=== PATIENT | female | born 1975 | race Caucasian/White ===

== ENCOUNTER 2017-05-06 13:26 | Outpatient (CLI) | payer BC, MEDICARE | END 2017-05-06 13:27 | disposition home or self-care (01) | LOC: CTENTCT 13:26 | PROVIDERS: ATTEND Specialist | DX: J32.9 Chronic sinusitis, unspecified (principal) | CPT/HCPCS: 70486 ==

== ENCOUNTER 2017-05-12 10:07 | Day surgery (SDC) | payer BC, MEDICARE ==
[2017-05-11 14:45] VITALS: BMI 35.4
[2017-05-12] MEDS ORDERED: Oxymetazoline HCl 0.05% ( 15 ML ) ONE ×2 (11:22→13:42)
[2017-05-12] MEDS ORDERED: Fentanyl 100 MCG/2 ML VIAL ONE ×3 (12:07→15:17)
[2017-05-12] MEDS ORDERED: Midazolam HCl 2 mg/2 ml Vial ONE (12:07)
[2017-05-12] MEDS ORDERED: Lidocaine 2% w/Epinephrine 1:200K 20 ML VIAL ONE (13:42)
[2017-05-12] MEDS ORDERED: Propofol 200 MG/20 ML VIAL ONE (14:07)
[2017-05-12] MEDS ORDERED: Ondansetron HCl/PF 4 MG/2 ML Vial ONE (14:07)
[2017-05-12] MEDS ORDERED: Lidocaine 1% PF 5 ML VIAL ONE (14:07)
[2017-05-12] MEDS ORDERED: PHENYLEPHRINE-NS 100 MCG/ML 10 ML SYRINGE ONE (14:07)
[2017-05-12] MEDS ORDERED: Dexamethasone 20 MG/5 ML VIAL ONE (14:07)
[2017-05-12] MEDS ORDERED: Triamcinolone 40 MG/ML VIAL ONE (14:35)
--- NOTE | 2017-05-12 19:40 | OP ---
DATE OF SERVICE: 05/12/2017 PREOPERATIVE DIAGNOSES: Gena has chronic sinusitis, recurrent sinusitis, allergic fungal sinusitis an d nasal polyps. POSTOPERATIVE DIAGNOSES: Gena has chronic sinusitis, recurrent sinusitis, allergic fungal sinusitis a nd nasal polyps. PROCEDURE PERFORMED: 1. Bilateral nasal endoscopy with maxillary antrostomy with removal of tissue. 2. Bilateral nasal endoscopy with total ethmoidectomy. 3. Bilateral nasal endoscopy with frontal sinusotomy. 4. Bilateral nasal endoscopy with sphenoidotomy. FINDINGS: Patient had extensive polyps and allergic fungal mucin throughout. Stereotactic imaging was used to facilitate the dissection. PROCEDURE IN DETAIL: After consent was obtained, the patient was identified, brought to the operati ng room, and placed on the operating room table in the supine position. Consent was obtained, notif edgar the patient of the possibility of additional infections, bleeding, brain injury, and eye/orbita l injury. The patient was placed on the operating room table, and general endotracheal anesthesia and intravenous access was obtained. The patient was then positioned, prepped and draped for endosc opic sinus surgery. Nasal preparation included trimming nasal vestibular hairs and spraying in topi shahzad Afrin. We then placed Afrin topical solution on nasal pledgets and strategically located them i ntranasally. The perinasal mucosa was injected with 1% lidocaine with 1:100,000 epinephrine in the submucoperichondrial plane of the septum, lateral nasal wall, and anterior to the uncinate. The pat ient was then prepped and draped in a sterile fashion and positioned for endoscopic sinus surgery. Maxillary antrostomy: The uncinate was then identified and the extent of the uncinate was appreciat ed by out-fracturing the uncinate with the ball-tip probe. We then used the sickle blade to disarti culate the uncinate from the lateral nasal wall. This was then removed with straight biting and upb iting punches with the remaining shrouds of mucosa and bony septum removed with the micro-debrider. The natural os of the maxillary sinus was then identified and enlarged with the maxillary punches a nd back biting forceps. Total ethmoidectomy: The anterior face of the ethmoid bulla was entered and with the micro-debrider , dissection continued posteriorly to the ground lamella. The limits of dissection included the ins ertion of the middle turbinate, medial orbital wall, and base of skull. We similarly identified the frontal recess and removed shrouds of bone and debris in that region to obtain patency into the agg er nasi region and frontal recess. We then entered the ground lamella and its anteroinferior aspect and proceeded posteriorly, opening the posterior ethmoid air-cell system. Again, the limits of dis section included the base of skull and medial orbital wall. Frontal sinusotomy: The anterior face of the ethmoid bulla was entered and with the micro-debrider, dissection continued posteriorly to the ground lamella. The limits of dissection included the inse rtion of the middle turbinate, medial orbital wall, and base of skull. We similarly identified the frontal recess and removed shrouds of bone and debris in that region to obtain patency into the Agge r Nasi region and frontal recess. We then entered the ground lamella and its anteroinferior aspect and proceeded posteriorly, opening the posterior ethmoid air-cell system. Again, the limits of diss ection included the base of skull and medial orbital wall. Sphenoidotomy: The anterior face of the sphenoid was identified and entered in its extreme anteroin ferior aspect. A sphenoid punch was then used to enlarge the sphenoidotomy and no injury to the opt ic nerve or internal carotid artery occurred. At this point, we then turned our attention to the contralateral side and proceeded with endoscopic sinus surgery. At the completion of the case, Rice keel splints were placed in the ethmoid cavities after the ethmo idectomy. There were no complications. The patient tolerated the procedure well and was discharged to the recovery room in stable condition prior to return to the preoperative Day Stay with ultimate discharge home. Prescriptions for pain medication and antibiotics were provided. The patient rece ived intramuscular Depo-Medrol during the case.
== END 2017-05-12 16:20 | disposition home or self-care (01) ==
LOC: SDC 10:07
PROVIDERS: ATTEND Specialist
PROC: 09BT8ZZ Excision of Left Frontal Sinus, Via Natural or Artificial Opening Endoscopic (ICD-10-PCS; principal; 2017-05-12)
PROC: 09CW8ZZ Extirpation of Matter from Right Sphenoid Sinus, Via Natural or Artificial Opening Endoscopic (ICD-10-PCS; principal; 2017-05-12)
PROC: 099R8ZZ Drainage of Left Maxillary Sinus, Via Natural or Artificial Opening Endoscopic (ICD-10-PCS; principal; 2017-05-12)
PROC: 09TV8ZZ Resection of Left Ethmoid Sinus, Via Natural or Artificial Opening Endoscopic (ICD-10-PCS; principal; 2017-05-12)
PROC: 099Q8ZZ Drainage of Right Maxillary Sinus, Via Natural or Artificial Opening Endoscopic (ICD-10-PCS; principal; 2017-05-12)
PROC: 09TU8ZZ Resection of Right Ethmoid Sinus, Via Natural or Artificial Opening Endoscopic (ICD-10-PCS; principal; 2017-05-12)
PROC: 09BS8ZZ Excision of Right Frontal Sinus, Via Natural or Artificial Opening Endoscopic (ICD-10-PCS; principal; 2017-05-12)
PROC: 09CX8ZZ Extirpation of Matter from Left Sphenoid Sinus, Via Natural or Artificial Opening Endoscopic (ICD-10-PCS; principal; 2017-05-12)
DX: J32.9 Chronic sinusitis, unspecified (principal); J33.9 Nasal polyp, unspecified; F41.9 Anxiety disorder, unspecified; J45.909 Unspecified asthma, uncomplicated; M81.0 Age-related osteoporosis without current pathological fracture; E78.00 Pure hypercholesterolemia, unspecified; F90.9 Attention-deficit hyperactivity disorder, unspecified type; E11.9 Type 2 diabetes mellitus without complications; Z79.891 Long term (current) use of opiate analgesic; Z79.899 Other long term (current) drug therapy; Z88.0 Allergy status to penicillin; Z98.51 Tubal ligation status; Z96.641 Presence of right artificial hip joint; Z90.710 Acquired absence of both cervix and uterus; Z98.890 Other specified postprocedural states; Z86.73 Personal history of transient ischemic attack (TIA), and cerebral infarction without residual deficits; Z87.81 Personal history of (healed) traumatic fracture
CPT/HCPCS: 85014; 85018; 85049; 96374; J0131; J1100; J2001; J2250; J2405; J2704; J3010; J3301

== ENCOUNTER 2017-05-20 12:07 | Outpatient (CLI) | payer BC, MEDICARE | END 2017-05-20 12:08 | disposition home or self-care (01) | LOC: LABBT 12:07 | PROVIDERS: ATTEND Specialist | DX: Z01.812 Encounter for preprocedural laboratory examination (principal) ==

== ENCOUNTER 2017-05-20 13:00 | Inpatient (IN) | payer BC, MEDICARE ==
[2017-05-26] MEDS ORDERED: Heparin 5,000 UNITS/ML VIAL ONE (08:40)
[2017-05-26] MEDS ORDERED: Ketorolac Tromethamine 30 MG/ML VIAL ONE (08:40)
[2017-05-26] MEDS ORDERED: Scopolamine 1.5 mg/72 hour Patch ONE (08:41)
[2017-05-26] MEDS ORDERED: cefOXitin 2 GM, Syringe 1 ML in Sterile Water 10 ML SLOW IVP SCH (08:45)
[2017-05-26] MEDS ORDERED: cefOXitin 2 GM in Sodium Chloride 0.9% 100 ML IVPB SCH (09:00)
[2017-05-26] MEDS ORDERED: Fentanyl 100 MCG/2 ML VIAL ONE (09:43)
[2017-05-26] MEDS ORDERED: Midazolam HCl 2 mg/2 ml Vial ONE (09:46)
[2017-05-26] MEDS ORDERED: Lidocaine 2% w/Epinephrine 1:200K 20 ML VIAL ONE (09:47)
[2017-05-26] MEDS ORDERED: Bupivacaine PF 0.5% 30 ML VIAL ONE (09:47)
[2017-05-26] MEDS ORDERED: Glycopyrrolate 0.2 MG/ML 5 ML SYRINGE ONE (10:18)
[2017-05-26] MEDS ORDERED: Succinylcholine Chloride 20 MG/ML 10 ml SYRINGE FS ONE (10:18)
[2017-05-26] MEDS ORDERED: Propofol 200 MG/20 ML VIAL ONE (10:18)
[2017-05-26] MEDS ORDERED: Lidocaine 2% MPF 10 ML AMP (For Epidural Use) ONE (10:18)
[2017-05-26] MEDS ORDERED: Metoclopramide HCl 10 MG/2 ML VIAL ONE (10:18)
[2017-05-26] MEDS ORDERED: Ondansetron HCl/PF 4 MG/2 ML Vial ONE (10:18)
[2017-05-26] MEDS ORDERED: diphenhydrAMINE 50 MG/ML VIAL ONE (10:18)
[2017-05-26] MEDS ORDERED: Ipratropium Oral Inhaler (200 INHALATIONS) INH PRN (10:27)
[2017-05-26] MEDS ORDERED: D5 1/2 NS w/20 mEq KCL 1,000 ML ONE (12:43)
[2017-05-26] MEDS ORDERED: HYDROmorphone 2 MG/ML VIAL SLOW IVP PRN (12:55)
[2017-05-26] MEDS ORDERED: Morphine Sulfate 2 MG/ML SYRINGE SLOW IVP PRN (12:55)
[2017-05-26] MEDS ORDERED: Ondansetron HCl/PF 4 MG/2 ML Vial IVP PRN (12:55)
[2017-05-26] MEDS ORDERED: Promethazine HCl 25 MG/ML VIAL IM/IV PRN (12:55)
[2017-05-26] MEDS ORDERED: Non-Formulary Medication 1 EACH PO PRN (12:55)
[2017-05-26] MEDS ORDERED: Morphine 4 MG/ML Carpuject SLOW IVP PRN ×2 (12:55→13:50)
[2017-05-26] MEDS ORDERED: Dextrose 50% Abboject 50 ML SYRINGE SLOW IVP PRN (13:50)
[2017-05-26] MEDS ORDERED: hydrALAZINE 20 MG/ML VIAL SLOW IVP PRN (13:50)
[2017-05-26] MEDS ORDERED: Promethazine HCl 25 MG/ML VIAL IM PRN (13:50)
[2017-05-26] MEDS ORDERED: Dextrose 5% in Water 1,000 ML IV PRN (13:50)
[2017-05-26] MEDS ORDERED: HumaLOG 300 UNITS/3 ML VIAL SC PRN (13:50)
[2017-05-26] MEDS ORDERED: Hydrocodone-Acetamin 15 ML UDCUP PO PRN (13:50)
[2017-05-26] MEDS ORDERED: diphenhydrAMINE 50 MG/ML VIAL IVP PRN (13:50)
[2017-05-26] MEDS ORDERED: Morphine 10 MG/ML VIAL SLOW IVP PRN (15:10)
[2017-05-26] MEDS: Morphine 10 MG/ML VIAL SLOW IVP PRN ×4 (15:12→23:08)
--- NOTE | 2017-05-26 15:16 | OP ---
DATE OF PROCEDURE: 05/26/2017. PREOPERATIVE DIAGNOSIS: Severe obesity with comorbidities. POSTOPERATIVE DIAGNOSIS: Severe obesity with comorbidities. PROCEDURE PERFORMED: Laparoscopic sleeve gastrectomy, esophagogastroduodenoscopy. SURGEON: Joseph Solorzano M.D. ANESTHESIA: General endotracheal. INDICATIONS: The patient is a 41-year-old obese white female. She has undergone preoperative evalu ation and education. She presents at this time for laparoscopic sleeve gastrectomy. DESCRIPTION OF PROCEDURE: Informed consent was obtained. The patient was taken to the operating ro om where general endotracheal anesthesia was obtained with the patient in the supine position. The abdomen was prepped with ChloraPrep and draped in sterile fashion. Local anesthetic was infiltrated and a 5 mm supraumbilical incision was created through which a Veress needle was passed into the pe ritoneal cavity and pneumoperitoneum established using carbon dioxide up to a pressure of 15 mmHg. A 5 mm trocar port was passed through this same incision. Laparoscopic camera was passed through th is port. Under direct vision, 4 additional ports were placed including bilateral subcostal 5 mm por ts, a paramedian right 12 mm port and a left paramedian 15 mm port. The patient was placed in reverse Trendelenburg position. A 5 mm epigastric incision was created th rough which Nathansen retractor was passed into the abdominal cavity and used to retract the left lo be of the liver. Unfortunately, she had significant fatty infiltration of her liver. This made retraction of the mario er difficult and made visualization of a good part of the stomach challenging as well. With her tra ctor optimally positioned, I was able to proceed in a safe fashion, although it was certainly more c hallenging. The pylorus was identified and beginning about 4 cm proximal to the pylorus, I dissected the greater curvature of all omental and vascular tissue using the LigaSure device. This dissection was lazarus d proximally up to the angle of His and eventually clearing the left pepe of the diaphragm. Unfortunately, the dissection plane between the stomach and the spleen at the fundus was very diffic ult as the stomach appeared to be intimately adherent to the spleen for reasons that were not certai n. I had to dissect this was carefully and slowly from a couple of different angles before fully mo bilizing this. Once it was mobilized, however, I was able to reflect the entire stomach to the abdi ent's right. Posterior adhesions were taken down as well. A size 36 bougie was passed down to the level of the pylorus and used as a guide for subsequent sania rectomy. The sleeve gastrectomy was performed using a series of fires of the [place] stapler along the lesser curvature. The initial fire was a green load followed by a yellow load followed by a ser ies of blue loads. The dissection was carried up to the angle of His, taking care to avoid narrowin g the incisura or the gastroesophageal junction. When the stomach was transected, the excised porti on was removed through the 15 mm port site and the fascia was closed with 0 Vicryl suture using a Gr aNee needle in a [id number] fashion. From above, esophagogastroduodenoscopy was performed passing the scope through the stomach down to t he pylorus. While it was noted to be snugged at the incisura, there was no evidence of stricture fo rmation and the lumen was patent. The scope passed through easily. There was no intraluminal bleed ing. The gas was aspirated and the scope was withdrawn uneventfully. From within the abdomen, the irrigant that had been placed on the staple line was aspirated. There had been no evidence of air leak from the staple line. There were a couple of areas of oozing and t hese were treated with a Hemoclip placement. All fluid was aspirated. All ports and instruments were removed under direct vision. The fascial defect at the right upper q uadrant 12 mm port site was closed with 0 Vicryl suture using a GraNee needle. Pneumoperitoneum was carefully evacuated. A 0.25% Marcaine with epinephrine was infiltrated in each port site. Skin ed ges were approximated with 4-0 Monocryl subcuticular suture. Dermabond was placed externally. Ther e were no complications. The patient tolerated the procedure well and was taken to recovery room in stable condition.
[2017-05-26] MEDS: Ketorolac Tromethamine 30 MG/ML VIAL IVP SCH ×2 (16:04→20:05)
[2017-05-26] MEDS: 1/2 NS w/KCL 20 mEq 1,000 ML IV SCH ×2 (16:05→20:39)
[2017-05-26] MEDS: Ondansetron HCl/PF 4 MG/2 ML Vial IVP PRN (16:12)
[2017-05-26 19:58] VITALS: BMI 35.4
[2017-05-26] MEDS ORDERED: Promethazine HCl 25 MG/ML VIAL IM SCH (20:30)
[2017-05-26] MEDS ORDERED: Meperidine HCl/PF 25 MG/ML VIAL IM SCH (20:30)
[2017-05-26] MEDS ORDERED: Enoxaparin Sodium 40 MG/0.4 ML SYRINGE SC SCH (21:00)
[2017-05-27] MEDS: Morphine 10 MG/ML VIAL SLOW IVP PRN ×4 (01:04→07:45)
[2017-05-27] MEDS: Ketorolac Tromethamine 30 MG/ML VIAL IVP SCH ×2 (03:19→10:00)
[2017-05-27 04:18] LABS: #Basophils 0.1 thou/uL (0.0-0.2); #Eosinphils 0.2 thou/uL (0.0-0.7); #Lymphocytes 2.8 thou/uL (1.20-3.40); #Monocytes 1.1 thou/uL (0.11-0.59); #Neutrophils 10.6 thou/uL (1.40-6.50); %Basophils 0.4 % (0.0-1.0); %Eosinophils 1.4 % (0.0-10.0); %Lymphocytes 18.9 % (21.0-51.0); %Monocytes 7.5 % (0.0-10.0); Hematocrit 37.5 % (36.0-47.0); Mean Platelet Volume 7.4 fL (7.4-10.4); Red Blood Cell (RBC) Count 4.11 mill/uL (4.20-5.40); White Blood Cell (WBC) Count 14.7 thou/uL (4.8-10.8)
[2017-05-27 04:42] LABS: Anion Gap 14 mmol/L (10-20); BUN (Urea Nitrogen) 8 mg/dL (7.0-18.7); Calc. Creatinine Clearance 166 mL/min (70-130); Calcium 8.4 mg/dL (7.8-10.44); Carbon Dioxide 21 mmol/L (22-29); Chloride 106 mmol/L (98-107); Estimated GFR-MDRD Greater than 90
[2017-05-27] MEDS: 1/2 NS w/KCL 20 mEq 1,000 ML IV SCH (05:46)
[2017-05-27] MEDS ORDERED: Pantoprazole 40 MG VIAL IVP SCH (09:00)
[2017-05-27] MEDS ORDERED: Bupropion 150 MG XL TAB PO SCH (09:00)
--- NOTE | 2017-05-27 10:34 | RAD ---
LIMITED UPPER GI: 05/27/2017 HISTORY: The patient is post gastric sleeve procedure. This is for evaluation of a leak, post procedure. FLUOROSCOPY: Total fluoroscopy time is 1.7 minutes with a total dose of 51.324 Gycm2. FINDINGS: Approximately 15 mL of Gastrografin was administered orally. Contrast traverses the region of the G E junction, but there is holdup with a suggested area of narrowing present within the most proximal aspect of the stomach, with only slow transit of contrast through this region. Contrast slowly exte nds through this region after 15 minutes and is also seen in the small bowel but, after 15 minutes, there is residual contrast within the distal esophagus. Multiple surgical clips overly the epigastric region, related to recent post surgical change. IMPRESSION: Post surgical changes related to recent gastric sleeve procedure. There is slow transit of contrast through an area of narrowing seen just distal to the level of the gastroesophageal junction within the stomach; however, at 15 minutes of imaging, additional contrast does traverse this region and ev entually extends into the small bowel. The above findings were discussed with Dr. Solorzano at the termination of this exam. CODE CR POS: [facility]
[2017-05-27] MEDS: Ondansetron HCl/PF 4 MG/2 ML Vial IVP PRN (10:39)
[2017-05-27 13:45] VITALS: BP 109/72; TEMP 98.6
== END 2017-05-27 14:50 | disposition home or self-care (01) | DRG 621 ==
LOC: SURG A 05-26 08:11
PROVIDERS: ADMIT Specialist; ATTEND Specialist
PROC: 0DB64Z3 Excision of Stomach, Percutaneous Endoscopic Approach, Vertical (ICD-10-PCS; principal; 2017-05-26)
PROC: 0DJ08ZZ Inspection of Upper Intestinal Tract, Via Natural or Artificial Opening Endoscopic (ICD-10-PCS; 2017-05-26)
DX: E66.01 Morbid (severe) obesity due to excess calories (principal); K76.0 Fatty (change of) liver, not elsewhere classified; Z68.35 Body mass index [BMI] 35.0-35.9, adult; F41.9 Anxiety disorder, unspecified; J45.909 Unspecified asthma, uncomplicated; E55.9 Vitamin D deficiency, unspecified; F90.9 Attention-deficit hyperactivity disorder, unspecified type; Z86.73 Personal history of transient ischemic attack (TIA), and cerebral infarction without residual deficits; E11.9 Type 2 diabetes mellitus without complications; Z79.84 Long term (current) use of oral hypoglycemic drugs; M81.0 Age-related osteoporosis without current pathological fracture; Z88.0 Allergy status to penicillin
CPT/HCPCS: 36415; 36416; 74241; 80048; 85025; 88307; 88312; 94760; A4216; C9113; J0131; J0694; J1170; J1200; J1644; J1650; J1885; J2001; J2175; J2250; J2270; J2405; J2550; J2704; J2765; J3010; J7050; S0020

== ENCOUNTER 2017-06-10 11:15 | Outpatient (CLI) | payer MEDICARE, BC ==
--- NOTE | 2017-06-10 12:02 | ULT ---
ULTRASOUND WITH DOPPLER DUPLEX VENOUS LOWER EXTREMITY RIGHT CPT: 41405 ICD-10-PCS: B54D HISTORY: Edema and pain. TECHNIQUE: Color flow Doppler, spectral waveform analysis of pulsed Doppler, and carias-scale imaging with maryan christal and augmentation, were used to evaluate the bilateral common femoral, femoral, popliteal, territory sales manager medical ior tibial, and superficial femoral, veins; and the proximal portions of the profunda femoral and gre ater saphenous, veins. FINDINGS: Appropriate compressibility and flow within the imaged deep vein system right lower extremity. IMPRESSION: No deep vein thrombosis. POS: [facility]
== END 2017-06-10 11:16 | disposition home or self-care (01) ==
LOC: SCSULT 11:15
PROVIDERS: ATTEND Specialist
DX: M79.604 Pain in right leg (principal); Z98.84 Bariatric surgery status

== ENCOUNTER 2017-06-14 12:56 | Outpatient (CLI) | payer BC, MEDICARE ==
--- NOTE | 2017-06-14 16:07 | ULT ---
RIGHT UPPER QUADRANT ULTRASOUND 06/14/17 COMPARISON: None. HISTORY: Right upper quadrant pain, prior bariatric surgery. TECHNIQUE: Multiplanar carias scale sonographic imaging of the right upper quadrant obtained. FINDINGS: Imaged pancreatic parenchyma is grossly unremarkable. the distal body and tail are obscured by bowel gas. There is marked increased echogenicity of the hepatic parenchyma suggesting hepatocellular disease, s uch as steatosis. This limits assessment for focal liver lesion and biliary dilatation. No gallbladder wall thickening or pericholecystic fluid is seen. No gallstones are noted. Right kidney measures 11.5 cm in craniocaudal dimension and demonstrates no stone, hydronephrosis or mass. The common bile duct is enlarged for a patient of this age, measuring in the 8 mm range. The sonograp her reports a positive Mckinney's sign, significance uncertain. IMPRESSION: 1. Increased echogenicity of the hepatic parenchyma, suggesting hepatocellular disease, such as steatosis. 2. Positive Mckinney's sign of uncertain significance given lack of gallstones, pericholecystic fl uid, and gallbladder wall thickening. 3. Dilated common bile duct. This may represent a biliary obstructive process in the region of t he ampulla of Vater or pancreatic head. 4. Recommend correlation with LFTs and further assessment via CT or MRI of the abdomen/MRCP to e valuate for a nonvisualized biliary obstructive lesion. Code T POS: [facility]
== END 2017-06-14 12:57 | disposition home or self-care (01) ==
LOC: ULT 12:56
PROVIDERS: ATTEND Specialist
DX: R10.11 Right upper quadrant pain (principal); K83.8 Other specified diseases of biliary tract; K82.8 Other specified diseases of gallbladder
CPT/HCPCS: 36415; 76705; 80053; 81001; 82150; 85025

== ENCOUNTER 2017-06-15 10:17 | Day surgery (SDC) | payer BC, MEDICARE ==
[2017-06-15] MEDS ORDERED: Ketorolac Tromethamine 30 MG/ML VIAL ONE ×2 (12:18→18:34)
[2017-06-15] MEDS ORDERED: Midazolam HCl 2 mg/2 ml Vial ONE ×2 (12:29→12:59)
[2017-06-15] MEDS ORDERED: Fentanyl 100 MCG/2 ML VIAL ONE ×4 (12:43→18:31)
[2017-06-15] MEDS ORDERED: Albuterol Sulfate HFA (OR ONLY) ONE (12:54)
[2017-06-15] MEDS ORDERED: Levofloxacin 500 mg/D5W 100 ml Premix Bag ONE (13:12)
[2017-06-15] MEDS ORDERED: Fentanyl 250 MCG/5 ML VIAL ONE (15:53)
[2017-06-15] MEDS ORDERED: Bupivacaine/Epinephrine 0.25% 30 ML VIAL ONE (16:03)
[2017-06-15] MEDS ORDERED: Promethazine HCl 25 MG/ML VIAL ONE (18:25)
[2017-06-15] MEDS ORDERED: Dexamethasone 20 MG/5 ML VIAL ONE (18:34)
[2017-06-15] MEDS ORDERED: Lidocaine 1% PF 5 ML VIAL ONE (18:34)
[2017-06-15] MEDS ORDERED: Propofol 200 MG/20 ML VIAL ONE (18:34)
[2017-06-15] MEDS ORDERED: Glycopyrrolate 0.2 MG/ML 5 ML SYRINGE ONE (18:34)
[2017-06-15] MEDS ORDERED: Ondansetron HCl/PF 4 MG/2 ML Vial ONE (18:34)
[2017-06-15] MEDS ORDERED: HYDROcodone/Acetaminophen 5/325 mg Tablet ONE (19:16)
--- NOTE | 2017-06-16 16:23 | OP ---
DATE OF OPERATION: 06/15/2017 PREOPERATIVE DIAGNOSES: Severe right upper quadrant abdominal pain, distended gallbladder with leuko cytosis. POSTOPERATIVE DIAGNOSES: Severe right upper quadrant abdominal pain, distended gallbladder with leuk ocytosis. OPERATION PERFORMED: Laparoscopic cholecystectomy. SURGEON: Joseph Solorzano M.D. ANESTHESIA: General endotracheal. INDICATIONS: The patient is a 41-year-old white female. She began having fairly severe right upper abdominal pain following her sleeve gastrectomy. This pain she believes has been getting worse and s he was 2 weeks out from surgery. Gallbladder ultrasound was obtained, which revealed a somewhat dist ended gallbladder and potentially dilated common bile duct, but no other significant abnormalities. Laboratory studies revealed elevated white blood cell count. Her examination is consistent with chol ecystitis. She has no evidence of incisional problems or infection. I spoke with her regarding opti ons for treating this. I suspect that this is a gallbladder related problem, but I should not be cer tain. We discussed to obtain a CT scan or further studies to evaluate this and she opted instead to proceed with cholecystectomy at this time, which I feel is a reasonable approach. DESCRIPTION OF OPERATION: Informed consent was obtained. The patient was taken to the operating ro om where general endotracheal anesthesia was obtained with the patient in the supine position. The a bdomen was prepped with Betadine and draped in the usual sterile fashion. Quarter percent Marcaine w ith epinephrine was infiltrated below the umbilicus and a 10 mm infraumbilical incision was created. A Veress needle was passed through this incision into the peritoneal cavity. A pneumoperitoneum was established using carbon dioxide up to a pressure of 15 mmHg. Local anesthetic was infiltrated and three additional 5 mm right upper quadrant incisions were created. Through the mid incision, a 5 mm port was passed into the peritoneal cavity. The camera was passed through this port and under direct vision, an 11 port is passed through the infraumbilical incision. The camera was replaced through t his port, and under direct vision, two additional 5 mm ports were passed through the incisions alread y created. The gallbladder was grasped and retracted in a cephalad direction. Minimal adhesions were bluntly st ripped away from the apex of the gallbladder, and the apex was retracted laterally and inferiorly. C areful dissection was carried out to the apex of the gallbladder to identify the cystic duct and cyst ic artery. These were each carefully dissected circumferentially. The duct was of normal caliber. Both the duct and the artery were divided between clips leaving two on the side to remain within the abdomen. The gallbladder was then dissected out of the gallbladder fossa using electrocautery and re moved through the infraumbilical port site. The fascia was closed with 0 Vicryl suture and a GraNee needle. The right upper quadrant was inspected and irrigated. All irrigant was aspirated. All port s and instruments were removed under direct vision. Pneumoperitoneum was carefully evacuated. Addit ional local anesthetic was infiltrated into each port site. The skin edges were approximated with 4- 0 Monocryl subcuticular sutures, and Dermabond was placed externally. There were no complications. The patient tolerated the procedure well and was taken to the Recovery Room in stable condition. FINDINGS: The patient's gallbladder was distended, but without significant inflammatory change. The duct was small and noninflamed and I did not obtain a cholangiogram. There were some adhesions betw een the omentum and the falciform ligament as well as to portion of the underside of the liver. The examined portions of the gastrectomy were entirely unremarkable. There was no evidence of any other intra-abdominal inflammatory process. The umbilicus was inspected at the patient's request and there was a small umbilical hernia. I passed the infraumbilical port through this hernia repaired with a single 0 Vicryl suture at the time of closure. There were no complications and essentially no blood loss. The patient tolerated the procedure well and was taken to recovery room in stable condition.
== END 2017-06-15 19:35 | disposition home or self-care (01) ==
LOC: SDC 10:17 → EEVIPCON 10:17 → SDC 19:35
PROVIDERS: ATTEND Specialist
PROC: 0FT44ZZ Resection of Gallbladder, Percutaneous Endoscopic Approach (ICD-10-PCS; principal; 2017-06-15)
DX: K81.1 Chronic cholecystitis (principal); M81.0 Age-related osteoporosis without current pathological fracture; F32.9 Major depressive disorder, single episode, unspecified; Z88.0 Allergy status to penicillin; Z98.890 Other specified postprocedural states
CPT/HCPCS: 88304; 96374; J0131; J1100; J1885; J1956; J2001; J2250; J2405; J2550; J2704; J3010

== ENCOUNTER 2017-08-03 10:17 | Outpatient (CLI) | payer BC, MEDICARE ==
--- NOTE | 2017-08-03 13:48 | RAD ---
UPPER GI: Date: 08/03/17 COMPARISON: 05/27/17. HISTORY: 41-year-old female who underwent a gastric sleeve procedure in May 2017. The patient reports anastasia t since the surgery she has had persistent nausea with vomiting and inability to eat and drink normal ly. FINDINGS: [employer] Pipe Supervisor imaging demonstrates postoperative clips, as well as a suture line within the epigastric region , consistent with the provided history of prior gastric sleeve procedure. The patient initially ingested Gastrografin. The contrast media extends from the distal esophagus int o the postoperative stomach. The contrast transit across the postoperative stomach is slow, but some of the ingested Gastrografin does extend into the duodenum. Thus, the patient ingested a small amount of thin barium. A persistent area of relative narrowing is noted within the postoperative stomach at approximately the level of the 12th rib. The proximal postoperative stomach is dilated in this regio n. The contrast media very slowly traverses this area of persistent narrowing of the postoperative st omach with significant contrast media persisting at least 15 minutes following ingestion of the contr ast. IMPRESSION: No evidence for complete obstruction at the level of the postoperative stomach. However, there is a p ersistent area of focal narrowing of the postoperative stomach as detailed above, with persistent dil ation and persistence of contrast media proximally. This suggests underlying fixed narrowing/strictur e which would be better assessed via direct visualization with endoscopy. POS: [facility]
[2017-08-03] MEDS ORDERED: GASTROGRAFIN 30 ML BOT ONE (16:51)
== END 2017-08-03 10:18 | disposition home or self-care (01) ==
LOC: RAD 10:17
PROVIDERS: ATTEND Specialist
DX: Z48.815 Encounter for surgical aftercare following surgery on the digestive system (principal); Z98.84 Bariatric surgery status
CPT/HCPCS: 74241

== ENCOUNTER 2017-11-24 11:32 | Outpatient (CLI) | payer OTHER | END 2017-11-24 11:33 | disposition home or self-care (01) | LOC: BICRAD 11:32 | PROVIDERS: ATTEND Internal Medicine | DX: Z47.1 Aftercare following joint replacement surgery (principal); Z96.641 Presence of right artificial hip joint ==

== ENCOUNTER 2018-08-18 05:28 | Outpatient (CLI) | payer BC, MEDICARE ==
[2018-08-18 12:03] LABS: Hemoglobin 12.6 g/dL (12.0-16.0); Mean Corpuscular Hemoglobin 29.5 pg (27.0-31.0); Mean Corpuscular Volume 92.2 fL (78.0-98.0); Mean Platelet Volume 8.4 fL (7.4-10.4); Platelet Count 297 thou/uL (130-400); RBC Distribution Width 11.2 % (11.5-14.5); Red Blood Cell (RBC) Count 4.27 mill/uL (4.20-5.40); White Blood Cell (WBC) Count 6.8 thou/uL (4.8-10.8)
[2018-08-18 12:26] LABS: Anion Gap 11 mmol/L (10-20); BUN (Urea Nitrogen) 10 mg/dL (7.0-18.7); Calc. Creatinine Clearance 0 mL/min (70-130); Calcium 9.6 mg/dL (7.8-10.44); Carbon Dioxide 28 mmol/L (22-29); Chloride 108 mmol/L (98-107); Estimated GFR-MDRD 90; Glucose 86 mg/dL (70-105); Potassium 4.7 mmol/L (3.5-5.1); Sodium 142 mmol/L (136-145)
== END 2018-08-18 05:29 | disposition home or self-care (01) ==
LOC: LABBT 05:28
PROVIDERS: ATTEND Neurological Surgery
DX: Z01.818 Encounter for other preprocedural examination (principal); M54.12 Radiculopathy, cervical region
CPT/HCPCS: 80048; 85027; 93005; 93010

== ENCOUNTER 2018-08-21 07:47 | Day surgery (SDC) | payer BC, MEDICARE ==
[2018-08-18 11:26] VITALS: BMI 23.0
[2018-08-21] MEDS ORDERED: Clindamycin/D5W 900 mg/50 ml Premix Bag ONE (08:06)
[2018-08-21] MEDS ORDERED: Levofloxacin 500 mg/D5W 100 ml Premix Bag ONE (08:06)
[2018-08-21] MEDS ORDERED: Midazolam HCl 2 mg/2 ml Vial ONE (10:13)
[2018-08-21] MEDS ORDERED: Sodium Chloride 0.9% 10 ML ONE (11:28)
[2018-08-21] MEDS ORDERED: HYDROmorphone 2 MG/ML VIAL ONE ×2 (12:07→14:09)
[2018-08-21] MEDS ORDERED: Fentanyl 100 MCG/2 ML VIAL ONE (12:27)
[2018-08-21] MEDS ORDERED: Morphine 4 MG/ML VIAL ONE (13:45)
[2018-08-21] MEDS ORDERED: PROPOFOL 200 MG/20 ML VIAL ONE (14:11)
[2018-08-21] MEDS ORDERED: Lidocaine 1% PF 5 ML VIAL ONE (14:11)
[2018-08-21] MEDS ORDERED: Rocuronium Bromide 10 MG/ML (10ML VIAL) ONE (14:11)
[2018-08-21] MEDS ORDERED: Ondansetron PF 4 MG/2 ML Vial ONE (14:11)
[2018-08-21] MEDS ORDERED: Ketorolac Tromethamine 30 MG/ML VIAL ONE (14:11)
[2018-08-21] MEDS ORDERED: Dexamethasone 20 MG/5 ML VIAL ONE (14:11)
[2018-08-21] MEDS ORDERED: Glycopyrrolate 0.2 MG/ML 5 ML SYRINGE ONE (14:11)
--- NOTE | 2018-08-21 14:21 | OP ---
DATE OF PROCEDURE: 08/21/2018 WOUND/OSTOMY NURSE: Esau Garzon PA-C PROCEDURES PERFORMED: Anterior cervical diskectomy C5-C6 and C6-C7, interbody arthrodesis, intervertebral biomechanical device, local morselized autograft, demineralized bone matrix, anterior titanium instrumentation C5-C6 and C6-C7. DESCRIPTION OF PROCEDURE: The patient was brought to the operating room and intubated. She was positioned supine with the head in modest extension on a gel-filled donut. An incision was made in the right precervical region and dissected medial to the sternocleidomastoid muscle, identified the anterior cervical spinal, and the level was confirmed by x-ray. We placed distraction between C5 and C7 and completely decompressed the intervertebral disks. The bony endplates were then decorticated for the purpose of arthrodesis and appropriate-sized intervertebral biomechanical PEEK device was brought into the field and filled with demineralized bone matrix and local morselized autograft, and tapped in place securely at C5-C6 and C6-C7. Next, an anterior plate was brought into the field and secured to C5, C6, and C7 using two 14-mm screws at each level. The wound was then extensively irrigated and maximum hemostasis was secured and the wound was closed in anatomic layers. Job ID: [id number]
[2018-08-21] MEDS ORDERED: tiZANidine HCl 4 MG TAB ONE (14:37)
[2018-08-21] MEDS ORDERED: HYDROcodone/Acetaminophen 5/325 mg Tablet ONE (15:24)
== END 2018-08-21 16:53 | disposition home or self-care (01) ==
LOC: SDC 07:47
PROVIDERS: ATTEND Neurological Surgery
PROC: 0RG10A0 Fusion of Cervical Vertebral Joint with Interbody Fusion Device, Anterior Approach, Anterior Column, Open Approach (ICD-10-PCS; principal; 2018-08-21)
DX: M50.322 Other cervical disc degeneration at C5-C6 level (principal); F41.9 Anxiety disorder, unspecified; M81.0 Age-related osteoporosis without current pathological fracture; J45.909 Unspecified asthma, uncomplicated; E11.9 Type 2 diabetes mellitus without complications; E78.00 Pure hypercholesterolemia, unspecified; F90.9 Attention-deficit hyperactivity disorder, unspecified type; Z86.73 Personal history of transient ischemic attack (TIA), and cerebral infarction without residual deficits; Z98.51 Tubal ligation status; Z90.710 Acquired absence of both cervix and uterus; Z98.84 Bariatric surgery status; Z88.5 Allergy status to narcotic agent; Z88.0 Allergy status to penicillin; Z79.891 Long term (current) use of opiate analgesic; Z98.890 Other specified postprocedural states
CPT/HCPCS: 76000; C1713; C1776; J1100; J1170; J1885; J1956; J2001; J2250; J2270; J2405; J2704; J3010; J3370; J3490

== ENCOUNTER 2018-09-07 14:45 | Outpatient (CLI) | payer BC, MEDICARE ==
--- NOTE | 2018-09-07 19:20 | RAD ---
CERVICAL SPINE SERIES THREE VIEWS: INDICATIONS: History of prior neck surgery with right upper extremity radiculopathy. FINDINGS: ACDF spans C5 through C7. No hardware complication is present. Anterior vertebral disk space prosth eses are present at C5-C6 and C6-C7. Spine alignment is maintained. The lateral masses of C1 are ap propriate aligned. The dens, where visualized, is intact. IMPRESSION: Postoperative cervical spine without acute hardware complication identified. POS: [facility]
== END 2018-09-07 14:46 | disposition home or self-care (01) ==
LOC: TBSIIMAG 14:45
PROVIDERS: ATTEND Neurological Surgery
DX: M54.12 Radiculopathy, cervical region (principal); Z98.890 Other specified postprocedural states
CPT/HCPCS: 72040

== ENCOUNTER 2018-10-30 13:47 | Outpatient (CLI) | payer MEDICARE, BC ==
--- NOTE | 2018-10-30 14:31 | CT ---
CT CERVICAL SPINE NONCONTRAST: HISTORY: Neck pain. Left arm numbness. Recent surgery. FINDINGS: Vertebral body height and alignment are maintained. Anterior fixation hardware is in place at the C5- 6-7 levels without perihardware lucency. C2-3: Minimal degenerative spondylolisthesis. Central canal and neural foramina are patent. C3-4, C4-5: Central canal and neural foramina are patent. C5-6: Mild to moderate central canal stenosis. Significant right foraminal stenosis remains. C5-C6: Significant central canal and bilateral foraminal stenoses. C7-T1: Central canal and neural foramina are patent. No traumatic disc herniation is apparent. No hyperdense fluid collections. IMPRESSION: Postoperative and degenerative changes cervical spine as detailed above. No hardware complication or acute abnormalities are demonstrated. Transcribed Date/Time: 10/30/2018 2:34 PM
== END 2018-10-30 13:48 | disposition home or self-care (01) ==
LOC: BICCT 13:47
PROVIDERS: ATTEND Neurological Surgery
DX: M50.30 Other cervical disc degeneration, unspecified cervical region (principal); M47.812 Spondylosis without myelopathy or radiculopathy, cervical region; Z98.890 Other specified postprocedural states
CPT/HCPCS: 72125

== ENCOUNTER 2018-11-02 12:41 | Outpatient (CLI) | payer BC, MEDICARE ==
--- NOTE | 2018-11-02 13:02 | RAD ---
XR Cerv Sp Ap Lat STANDARD History: [M 50.30 DDD] Comparison: Radiograph August 2018 Findings: Open-mouth odontoid view is normal. Similar appearance of ACDF hardware and C5-C7. No hardw are complication. No migration of the discectomy changes. Low-grade narrowing of the C4/C5 disc space with small circumferential osteophyte. Impression: Unchanged postoperative appearance.
== END 2018-11-02 12:42 | disposition home or self-care (01) ==
LOC: TBSIIMAG 12:41
PROVIDERS: ATTEND Neurological Surgery
DX: M50.30 Other cervical disc degeneration, unspecified cervical region (principal); Z98.890 Other specified postprocedural states
CPT/HCPCS: 72040

== ENCOUNTER 2018-12-26 11:19 | Outpatient (CLI) | payer BC, MEDICARE ==
--- NOTE | 2018-12-26 11:51 | RAD ---
THREE VIEWS CERVICAL SPINE: Comparison: 11-02-18 History: Cervical fusion. Neck pain. Radiculopathy. FINDINGS: Three views of the cervical spine shows the patient to be status post anterior fusion of C5 through C 7. No perihardware lucency is seen. No prevertebral soft tissue swelling is seen. The vertebral melissa s demonstrate normal alignment without subluxation. IMPRESSION: Post-operative changes of the lower cervical spine without evidence of complication. POS: [facility]
== END 2018-12-26 11:20 | disposition home or self-care (01) ==
LOC: TBSIIMAG 11:19
PROVIDERS: ATTEND Neurological Surgery
DX: M54.12 Radiculopathy, cervical region (principal); Z98.1 Arthrodesis status
CPT/HCPCS: 72040

== ENCOUNTER 2019-01-04 13:56 | Outpatient (CLI) | payer BC, MEDICARE | END 2019-01-04 13:57 | disposition home or self-care (01) | LOC: CTENTCT 13:56 | PROVIDERS: ATTEND Otolaryngology Plastic Surgery within the Head & Neck | DX: J32.9 Chronic sinusitis, unspecified (principal) | CPT/HCPCS: 70486 ==

== ENCOUNTER 2019-01-09 13:22 | Outpatient (CLI) | payer BC, MEDICARE ==
--- NOTE | 2019-01-09 15:20 | MRI ---
Exam: MRI thoracic spine without contrast HISTORY: Thoracic spine pain. COMPARISON: None FINDINGS: Appropriate T1 marrow signal intensity of the thoracic vertebra. Thoracic spine vertebral body height is obtained. No fracture. No significant STIR hyperintensity to suggest vertebral body edema or ligamentous injury. Intrinsic T1 hypointensity and T2 hyperintensity at the T2 level, compatible with a intraosseous atypical hemangioma. Incompletely evaluated cervical fusion hardware at the distal cervical spine Visualized lung parenchyma, mediastinum and solid organs are unremarkable. The thoracic cord has a normal size and signal intensity. No cord malacia. No cord expansion or T2 hy perintensity in the cord. Conus medullaris terminates at the mid L1 level. Throughout the thoracic spine, neural foramina are patent. T7-T8, T8-T9 minimal mass effect upon the ventral thecal sac secondary to left and right paracentral disc bulge. IMPRESSION: 1. 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 2. No significant canal stenosis or neural foraminal narrowing. 3. No signal abnormality in the thoracic cord. Transcribed Date/Time: 01/09/2019 3:48 PM
== END 2019-01-09 13:23 | disposition home or self-care (01) ==
LOC: SCSMRI 13:22
PROVIDERS: ATTEND Neurological Surgery
DX: M54.6 Pain in thoracic spine (principal); D18.02 Hemangioma of intracranial structures
CPT/HCPCS: 72146

== ENCOUNTER → 2019-01-10 | Day surgery (SDC) | payer BC, MEDICARE ==
[2019-01-09 08:56] VITALS: BMI 21.6
[~2019-01-10] MED LIST: Dexamethasone 20 MG/5 ML VIAL ONE; Fentanyl 100 MCG/2 ML VIAL ONE; Glycopyrrolate 0.2 MG/ML 5 ML SYRINGE ONE; Lidocaine 1% PF 5 ML VIAL ONE; Lidocaine 1% w/Epinephrine 1:100K 20 ML VIAL ONE; Midazolam HCl 2 mg/2 ml Vial ONE; Morphine 10 MG/ML VIAL ONE; Morphine 4 MG/ML VIAL ONE; Ondansetron PF 4 MG/2 ML Vial ONE; Oxymetazoline HCl 0.05% ( 15 ML ) ONE; PROPOFOL 200 MG/20 ML VIAL ONE; Rocuronium Bromide 10 MG/ML (10ML VIAL) ONE
--- NOTE | 2019-01-11 11:32 | OP ---
DATE OF PROCEDURE: 01/10/2019 PREOPERATIVE DIAGNOSES: 1. Chronic rhinosinusitis. 2. Allergic fungal sinusitis. 3. Bilateral nasal polyposis. POSTOPERATIVE DIAGNOSES: 1. Chronic rhinosinusitis. 2. Allergic fungal sinusitis. 3. Bilateral nasal polyposis. PROCEDURES PERFORMED: 1. Bilateral endoscopic sinus surgery, frontal sinusotomy with removal of tissue. 2. Bilateral endoscopic sinus surgery, maxillary antrostomies with removal of tissue. 3. Bilateral endoscopic sinus surgery, sphenoidotomies with removal of tissue. 4. Landmarks stereotactic navigational surgery. ESTIMATED BLOOD LOSS: 20 mL. COMPLICATIONS: None. ANESTHESIA: GETA. DESCRIPTION OF PROCEDURE: The patient was taken to the operating room and placed supine on the table. General endotracheal anesthesia was obtained by the Anesthesia staff. Tube was secured in the left lower lip. The patient was then placed in a beach-chair position. Afrin pledgets were placed in the nasal cavity as the patient was prepped and draped in standard surgical fashion. Following this, the landmarks image-guided system was then set up and calibrated and was noted to be within 1 mm of accuracy. Following this, a 0-degree endoscope along with the 0-degree microdebrider was advanced into the middle meatus. The middle turbinates were gently medialized. There was remnant of the uncinate process present bilaterally, which was removed using the 0-degree microdebrider. The natural maxillary sinus ostia were further opened and scar bands were removed from this area using the 0-degree microdebrider. Following this, a curved suction and straight suction were used to remove copious amounts of allergic fungal debris and nasal polyps were completely filling the maxillary sinuses bilaterally. Following this, the 45-degree endoscope along with a 40-degree microdebrider blade on the navigational device was then used to identify the frontal recess and frontal sinus ostia. There was complete impaction of allergic fungal sinus disease and nasal polyps in this area, which were removed using the microdebrider bilaterally. Following this, the 0-degree microdebrider and the navigational system were then used to identify the sphenoid sinus bilaterally and the sphenoid sinus ostia was then further widened medially and inferiorly using the microdebrider. Nasal polyps and allergic fungal debris were removed from this area. The previous ethmoidectomies showed mild polypoid changes, otherwise were patent and healthy. Nasal cavity was irrigated. Mirapex was placed within the middle meatus. Mcclellan splints were placed and secured. The patient tolerated the procedure well. Job ID: [id number]
== END ==
LOC: SDC 07:23
PROVIDERS: ATTEND Otolaryngology Plastic Surgery within the Head & Neck
PROC: 09BT8ZZ Excision of Left Frontal Sinus, Via Natural or Artificial Opening Endoscopic (ICD-10-PCS; principal; 2019-01-10)
PROC: 09BX8ZZ Excision of Left Sphenoid Sinus, Via Natural or Artificial Opening Endoscopic (ICD-10-PCS; principal; 2019-01-10)
PROC: 09BR8ZZ Excision of Left Maxillary Sinus, Via Natural or Artificial Opening Endoscopic (ICD-10-PCS; principal; 2019-01-10)
PROC: 09BQ8ZZ Excision of Right Maxillary Sinus, Via Natural or Artificial Opening Endoscopic (ICD-10-PCS; principal; 2019-01-10)
PROC: 8E09XBZ Computer Assisted Procedure of Head and Neck Region (ICD-10-PCS; principal; 2019-01-10)
PROC: 09BW8ZZ Excision of Right Sphenoid Sinus, Via Natural or Artificial Opening Endoscopic (ICD-10-PCS; principal; 2019-01-10)
PROC: 09BS8ZZ Excision of Right Frontal Sinus, Via Natural or Artificial Opening Endoscopic (ICD-10-PCS; principal; 2019-01-10)
DX: J32.9 Chronic sinusitis, unspecified (principal); J33.9 Nasal polyp, unspecified; J45.909 Unspecified asthma, uncomplicated; J34.89 Other specified disorders of nose and nasal sinuses; G43.909 Migraine, unspecified, not intractable, without status migrainosus; F32.9 Major depressive disorder, single episode, unspecified; F41.9 Anxiety disorder, unspecified; M81.0 Age-related osteoporosis without current pathological fracture; E78.00 Pure hypercholesterolemia, unspecified; F90.9 Attention-deficit hyperactivity disorder, unspecified type; E11.9 Type 2 diabetes mellitus without complications; J34.3 Hypertrophy of nasal turbinates; Z86.718 Personal history of other venous thrombosis and embolism; Z86.73 Personal history of transient ischemic attack (TIA), and cerebral infarction without residual deficits; Z88.0 Allergy status to penicillin; Z88.5 Allergy status to narcotic agent; Z98.890 Other specified postprocedural states
CPT/HCPCS: 85014; 87070; 87102; 87205; 87206; J0131; J1100; J2001; J2250; J2270; J2405; J2704; J3010

== ENCOUNTER 2020-10-21 07:53 | Outpatient (CLI) | payer BC, MEDICARE | END 2020-10-21 07:54 | disposition home or self-care (01) | LOC: TBSIIMAG 07:53 | PROVIDERS: ATTEND Neurological Surgery | DX: M51.14 Intervertebral disc disorders with radiculopathy, thoracic region (principal); D18.09 Hemangioma of other sites; M48.02 Spinal stenosis, cervical region; M47.812 Spondylosis without myelopathy or radiculopathy, cervical region; Z98.1 Arthrodesis status | CPT/HCPCS: 72141; 72146 ==